=== PATIENT | male | born 1970 | race Two or more races ===

== ENCOUNTER 2023-10-16 06:15 | Day surgery (SDC) | payer BC ==
[~2023-10-16] VITALS: Ht 190.5 cm; Wt 103.4 kg
[2023-10-16] MEDS ORDERED: GABAPENTIN 400 MG CAP PO ONE (06:45)
[2023-10-16] MEDS ORDERED: CELECOXIB 100 MG CAP PO ONE (06:45)
[2023-10-16] MEDS ORDERED: ACETAMINOPHEN IV 1000 MG/100ML (10MG/ML) IV ONE (06:45)
[2023-10-16] MEDS ORDERED: LIDOCAINE W/ EPINEPHRINE 2% INJ 20ML VIAL ONE (06:46)
[2023-10-16] MEDS ORDERED: DexAMETHasone SOD PHOS 10MG/1ML VIAL INJ ONE (06:56)
[2023-10-16] MEDS ORDERED: KETOROLAC TROMETH 30 MG/ML 1ML VIAL ONE (06:56)
[2023-10-16] MEDS ORDERED: LIDOCAINE 2% (LOCAL ANESTH.) PF 5ml SDV ONE (06:56)
[2023-10-16] MEDS ORDERED: ONDANSETRON HCL 4 MG/2 ML VIAL ONE (06:56)
[2023-10-16] MEDS ORDERED: GLYCOPYRROLATE 0.2 MG/ML 1ML VIAL ONE (06:57)
[2023-10-16] MEDS ORDERED: PROPOFOL 10 MG/ML 20 ML IV ONE ×2 (06:57→07:45)
[2023-10-16] MEDS ORDERED: EPINEPHrine HCL 1 MG/1 ML AMP ONE ×2 (06:59→07:18)
[2023-10-16] MEDS ORDERED: DexAMETHasone SOD PHOS 4 MG/1ML SDV INJ ONE (07:01)
[2023-10-16] MEDS ORDERED: ceFAZolin 2 GM/D5W50ml 50 ML IV ONE (07:13)
[2023-10-16] MEDS ORDERED: BUPIVACAINE HCL 0 ML ONE (07:18)
[2023-10-16] MEDS ORDERED: ROPIVACAINE 0.5% (5MG/ML) 20ML AMPULE IJ ONE (07:28)
[2023-10-16] MEDS ORDERED: KETAMINE 50mg/ML 1ml syringe ONE (07:38)
[2023-10-16] MEDS ORDERED: fentaNYL CITRATE 100 MCG/2 ML VL ONE (07:38)
[2023-10-16 08:37] VITALS: TEMP 98.1; O2SAT 96
[2023-10-16] MEDS ORDERED: NALOXONE HCL 0.4 MG/ML VIAL IV PRN (09:00)
[2023-10-16] MEDS ORDERED: hydrALAZINE HCL 20 MG/ML VL IV PRN (09:00)
[2023-10-16] MEDS ORDERED: oxyCODONE HCL 5MG TAB PO PRN (09:00)
[2023-10-16] MEDS ORDERED: fentaNYL CITRATE 100 MCG/2 ML VL IV PRN (09:00)
[2023-10-16] MEDS ORDERED: ePHEDrine SULFATE 50 MG/ML AMP IV PRN (09:00)
[2023-10-16] MEDS ORDERED: ONDANSETRON HCL 4 MG/2 ML VIAL IV PRN (09:00)
[2023-10-16] MEDS ORDERED: FLUMAZENIL 0.1 MG/ML INJ 10ML MDV IV PRN (09:00)
[2023-10-16] MEDS ORDERED: HYDROmorphone HCL 2 MG/ML VL/or syr IV PRN (09:00)
[2023-10-16 09:20] VITALS: BP 113/76; PULSE 70; RESP 12; O2SAT 99
== END 2023-10-16 09:30 | disposition home or self-care (01) ==
LOC: SUR 06:15
PROVIDERS: ATTEND Orthopaedic Surgery
DX: S83.241A Other tear of medial meniscus, current injury, right knee, initial encounter (principal); X58.XXXA Exposure to other specified factors, initial encounter; Y93.89 Activity, other specified; Y92.89 Other specified places as the place of occurrence of the external cause; Y99.8 Other external cause status; M23.41 Loose body in knee, right knee
CPT/HCPCS: 29881; C1713; J0171; J0690; J1100; J1885; J2001; J2405; J2704; J0131; J3490